=== PATIENT | male | born 2000 | race Caucasian/White ===

== ENCOUNTER → 2024-10-11 | Outpatient (CLI) | payer OTHER ==
[2024-10-11 13:34] LABS: Basophils # (A) 0.01 X 10*3/uL (0.00-0.10); Basophils % (A) 0.1 %; Eosinophils # (A) 0 X 10*3/uL (0.04-0.35); Eosinophils % (A) 0 %; HCT 46.8 % (39.6-50.0); HGB 15.1 g/dL (13.0-17.0); Lymphocytes # (A) 1.16 X 10*3/uL (0.90-5.00); Lymphocytes % (A) 10.8 %; MCH 27.3 pg (27.0-32.0); MCHC 32.3 g/dL (32.0-37.0); MCV 84.6 FL (80.0-97.0); Mean Platelet Volume 11.9 FL (9.5-12.2); Monocytes # (A) 0.66 X 10*3/uL (0.20-1.00); Monocytes % (A) 6.2 %; NRBC Per 100 WBC 0 X 10*3/uL (0.00-0.01); Neutrophils # (A) 8.85 X 10*3/uL (1.80-7.70); Neutrophils % (A) 82.6 %; Platelet Count 212 X 10*3/uL (140-440); RBC 5.53 X 10*6/uL (4.40-5.60); WBC 10.71 X 10*3/uL (4.50-10.00)
== END | disposition home or self-care (01) ==
LOC: LABWHC1 09:34
PROVIDERS: ATTEND Psychiatry & Neurology Psychiatry
DX: Z51.81 Encounter for therapeutic drug level monitoring (principal); Z79.899 Other long term (current) drug therapy
CPT/HCPCS: 36415; 85025